=== PATIENT | male | born 1950 | race Caucasian/White ===

== ENCOUNTER → 2019-10-26 | Outpatient (CLI) | payer MEDICARE, BC ==
--- NOTE | 2019-10-26 11:20 | Diagnostic Imaging Report ---
INDICATION: Neck pain EXAM: Cervical spine FINDINGS: AP and lateral views of the cervical spine show normal vertebral body height and alignment. There is disc space narrowing of C5-C6 and C6-C7. IMPRESSION: 1. Degenerative disc changes at C5-C6 and C6-C7. No fracture or acute abnormality is seen. Dictated by: Dictated on workstation # [id number]
== END ==
LOC: RAD FS 10:49
PROVIDERS: ATTEND Nurse Practitioner Family
DX: M50.322 Other cervical disc degeneration at C5-C6 level (principal)
CPT/HCPCS: 72040

== ENCOUNTER → 2020-01-01 | Outpatient (CLI) | payer MEDICARE, BC ==
--- NOTE | 2020-01-01 12:36 | Diagnostic Imaging Report ---
CLINICAL HISTORY: Foot pain for 3 weeks. COMPARISON: None. TECHNIQUE: 4 views of the right foot. FINDINGS: There is no acute fracture or dislocation of the right foot. Alignment is anatomic. Degenerative changes are seen in the right foot with marginal osteophytes present. A prominent enthesophyte is seen along the plantar surface of the calcaneus. There is mild soft tissue edema overlying the right calcaneus. IMPRESSION: 1. No acute fracture or dislocation in the right foot. 2. Mild soft tissue edema overlying the right calcaneus. No radiopaque foreign bodies are present. 3. Prominent enthesophyte along the plantar surface of the calcaneus. Dictated by: Dictated on workstation # [id number]
== END ==
LOC: RAD FS 10:55
PROVIDERS: ATTEND Nurse Practitioner Family
DX: M77.31 Calcaneal spur, right foot (principal)
CPT/HCPCS: 73630